=== PATIENT | female | born 1955 | race Caucasian/White ===

== ENCOUNTER 2018-12-03 18:46 | Emergency (ER) | payer BC ==
--- NOTE | 2018-12-03 18:55 | ER Document Report ---
HPI - HPI Time Seen by Provider: 12/03/18 18:55 Pain Level: 2 - REPRODUCTIVE Reproductive: DENIES: : Past Medical History - General Information source: Patient - Social History Smoking Status: Unknown if Ever Smoked Family History: Reviewed & Not Pertinent - Past Medical History Cardiac Medical History: Reports: Hx Hypercholesterolemia, Hx Hypertension Denies: Hx Coronary Artery Disease, Hx Heart Attack Pulmonary Medical History: Denies: Hx Asthma, Hx Bronchitis, Hx COPD, Hx Pneumonia Neurological Medical History: Denies: Hx Cerebrovascular Accident, Hx Seizures Musculoskeletal Medical History: Reports Hx Arthritis Past Surgical History: Reports: Hx Gynecologic Surgery, Hx Hysterectomy. Denies: Hx Pacemaker - Immunizations Hx Diphtheria, Pertussis, Tetanus Vaccination: Yes Vertical Provider Document - CONSTITUTIONAL Agree With Documented VS: Yes Exam Limitations: No Limitations General Appearance: WD/WN Notes: PHYSICAL EXAMINATION: GENERAL: Well-appearing, well-nourished and in no acute distress. HEAD: Atraumatic, normocephalic. EYES: Pupils equal round and reactive to light, extraocular movements intact, conjunctiva are normal. ENT: Nares patent, oropharynx clear without exudates. Moist mucous membranes. NECK: Normal range of motion, supple without lymphadenopathy LUNGS: Breath sounds clear to auscultation bilaterally and equal. No wheezes rales or rhonchi. HEART: Regular rate and rhythm without murmurs ABDOMEN: Soft, nontender, nondistended abdomen. No guarding, no rebound. No masses appreciated. Female : deferred Musculoskeletal: Normal range of motion, no pitting or edema. No cyanosis. Noted pain with flexion, extension, abduction, adduction of 2st digit, tenderness and puncture wound over #second metatarsal and third metatarsal full motor and sensory function in PATIENCE. [employer] + 2 BUE equally. negative Snuffbox tenderness on left . Ulnar and radial pulses + 2 BUE equally. DTRs +2 in bilateral upper extremities equally. No deformity noted of hand or wrist bilaterally. Normal flexion, extension, ulnar/radial deviation. Negative kanavels sign. No open wounds or drainage from wrist. No vascular compromise. full motor and sensory function with medial, radial and ulnar nerves bilaterally and equally. NEUROLOGICAL: Cranial nerves grossly intact. Normal speech, normal gait. Normal sensory, motor exams PSYCH: Normal mood, normal affect. SKIN: Warm, Dry, normal turgor, no rashes or lesions noted. - INFECTION CONTROL TRAVEL OUTSIDE OF THE [place] IN LAST 30 DAYS: No Course - Re-evaluation Re-evalutation: 12/03/18 19:49 Vitals stable, afebrile, no distress. Nurse's notes reviewed. Left hand x-ray negative for acute fracture dislocation, no was noted soft tissue swelling. Patient given tetanus vaccination, unsure of last tetanus in the left over the last 10 years. Will start patient on oral antibiotics, puncture wounds high- pressure irrigation with 100 mL of normal saline, no laceration to repair. Will place patient on oral antibiotics. Consent by patient given to place in left finger aluminum splint,. cms intact, sensory motor function intact in bilateral upper extremities prior to splint application fiberglass splint placed without incident. cms intact 20 minutes after splint application. Splint is in good a lignment. Bilateral upper extremities with motor and sensory function intact 20 minutes after application. Pt stated that splint felt comfortable. After performing a Medical Screening Examination, I estimate there is LOW risk for OPEN FRACTURE, COMPARTMENT SYNDROME, TENDON RUPTURE, ACUTE NEUROVASCULAR INJURY, or RETAINED FOREIGN BODY, thus I consider the discharge disposition reasonable. Also, there is no evidence or peritonitis, sepsis, or toxicity. I have reevaluated this patient multiple times and no significant life threatening changes are noted. The patient and I have discussed the diagnosis and risks, and we agree with discharging home with close follow-up with the understanding that symptoms and presentations can change. We also discussed returning to the Emergency Department immediately if new or worsening symptoms occur. We have discussed the symptoms which are most concerning (e.g., changing or worsening pain, fever, numbness, weakness, cool or painful digits) that necessitate immediate return. 12/03/18 19:59 Discharge - Discharge Clinical Impression: Dog bite Qualifiers: Encounter type: initial encounter Qualified Code(s): W54.0XXA - Bitten by dog, initial encounter Condition: Stable Disposition: HOME, SELF-CARE Instructions: Animal Bites ([facility]), Clindamycin ([facility]), Tetanus Immunization Given ([facility]), Puncture Wound ([facility]) Additional Instructions: Fluctuance receive a day with soap and water, take antibiotics with food, finish course of antibiotics. You are given a tetanus immunization today. Her dog's rabies vaccinations are up-to-date. If you experience any severe pain, redness, swelling, warmth to touch around puncture wound of hand, return to the ED for reevaluation Return immediately for any new or worsening symptoms. Follow up with primary care provider, call tomorrow to make followup appointment. Prescriptions: Ciprofloxacin HCl [Cipro 500 mg Tablet] 500 mg PO BID #10 tablet Clindamycin HCl [Cleocin 150 mg Capsule] 150 mg PO Q6H #28 capsule Referrals: DICK VALERIO PA-C [Primary Care Provider] - Follow up as needed BHARATH ORDAZ MD [ACTIVE PROVISIONAL STAFF] - Follow up as needed
--- NOTE | 2018-12-03 19:17 | RADIOLOGY REPORT (SQ) ---
EXAM DESCRIPTION: HAND LEFT 3 VIEWS COMPLETED DATE/TIME: 12/03/2018 7:08 pm REASON FOR STUDY: dog bite, r/o fx or fb COMPARISON: None. EXAM PARAMETERS: NUMBER OF VIEWS: Three views. TECHNIQUE: AP, lateral and oblique radiographic images acquired of the left hand. LIMITATIONS: None. FINDINGS: MINERALIZATION: Normal. BONES: No acute fracture or dislocation. No worrisome bone lesions. JOINTS: No effusions. SOFT TISSUES: Soft tissue swelling. No foreign body. OTHER: No other significant finding. IMPRESSION: Soft tissue swelling. No osseous findings. No foreign body. TECHNICAL DOCUMENTATION: JOB ID: [id number] [employer]- All Rights Reserved Reading location - IP/workstation name: [email or web address]
[2018-12-03] MEDS ORDERED: DIPH/PERTUSS(ACELL)/TETANUS VAC/PF 0.5 ML SYR (>=10YO) IM ONE (19:42)
[2018-12-03] MEDS ORDERED: IBUPROFEN 800 MG TABLET PO ONE (19:57)
[2018-12-03 20:13] VITALS: BP 148/87
== END 2018-12-03 20:19 | disposition home or self-care (01) ==
LOC: ER 18:46
DX: S61.231A Puncture wound without foreign body of left index finger without damage to nail, initial encounter (principal); W54.0XXA Bitten by dog, initial encounter; Z23 Encounter for immunization; E78.00 Pure hypercholesterolemia, unspecified; I10 Essential (primary) hypertension; Z90.710 Acquired absence of both cervix and uterus
CPT/HCPCS: 90471; 90715; 99283

== ENCOUNTER 2018-12-05 09:23 | Inpatient (IN) | payer BC ==
[2018-12-05] MEDS ORDERED: NORMAL SALINE 500 ML IV PRN (09:51)
[2018-12-05] MEDS ORDERED: HYDROCODONE/ACETAMINOPHEN 5-325 MG TABLET PO ONE (09:51)
[2018-12-05] MEDS ORDERED: CLINDAMYCIN 600 MG/D5W RTU 600 MG/50 ML RTUPB IV ONE (09:53)
--- NOTE | 2018-12-05 09:58 | ER Document Report ---
ED General - General Chief Complaint: Dog Bite Stated Complaint: LEFT HAND PAIN Time Seen by Provider: 12/05/18 09:34 Notes: Patient is a 62-year-old female who presents the emergency department with left hand pain. Patient is right-handed. She was seen here in the emergency department 2 days ago for a dog bite and was started on clindamycin due to her penicillin allergy. She states that she now has some red streaking up her left arm. The puncture wound at her distal first metacarpal has been draining. She has been taking her medication as prescribed. Past medical history includes hyperlipidemia, CHF, hypertension, and anxiety. Patient states that she had some chills last night. She received her tetanus vaccine 2 days ago when she was here in the emergency department. She is able to move her digits, but has some redness and swelling to her left hand. Patient received her tetanus vaccine this past . TRAVEL OUTSIDE OF THE [place] IN LAST 30 DAYS: No - Related Data Allergies/Adverse Reactions: codeine [Codeine] Allergy (Verified 12/05/18 09:25) Penicillins Allergy (Verified 12/05/18 09:25) Past Medical History - Social History Smoking Status: Never Smoker Chew tobacco use (# tins/day): No Frequency of alcohol use: Rare Drug Abuse: None Family History: Reviewed & Not Pertinent Patient has suicidal ideation: No Patient has homicidal ideation: No - Past Medical History Cardiac Medical History: Reports: Hx Congestive Heart Failure, Hx Hypercholesterolemia, Hx Hypertension Denies: Hx Coronary Artery Disease, Hx Heart Attack Pulmonary Medical History: Denies: Hx Asthma, Hx Bronchitis, Hx COPD, Hx Pneumonia Neurological Medical History: Denies: Hx Cerebrovascular Accident, Hx Seizures Renal/ Medical History: Denies: Hx Peritoneal Dialysis Musculoskeletal Medical History: Reports Hx Arthritis Past Surgical History: Reports: Hx Gynecologic Surgery, Hx Hysterectomy. Denies: Hx Pacemaker - Immunizations Hx Diphtheria, Pertussis, Tetanus Vaccination: Yes Review of Systems - Review of Systems Notes: REVIEW OF SYSTEMS: CONSTITUTIONAL : See HPI. EENT: Denies eye, ear, throat, or mouth pain, discharge, or symptoms. Denies nasal or sinus congestion. CARDIOVASCULAR: Denies chest pain. RESPIRATORY: Denies shortness of breath, cough, congestion, difficulty breathing, or wheezing. GASTROINTESTINAL: Denies nausea, vomiting, and diarrhea. Denies abdominal pain. Denies constipation. GENITOURINARY: Denies difficulty urinating, burning, blood in urine, urgency or frequency. MUSCULOSKELETAL: Denies neck and back pain. See HPI. SKIN: See HPI. HEMATOLOGIC : Denies easy bruising or bleeding. LYMPHATIC: Denies swollen, painful, enlarged glands. NEUROLOGICAL: Denies no numbness or tingling denies weakness. Denies headache. Denies altered mental status. Denies alteration in speech. PSYCHIATRIC: Denies stress, anxiety, alteration in sleep patterns, or depression. All other systems reviewed and negative. Physical Exam - Vital signs Vitals: Temp Pulse Resp BP Pulse Ox 98.1 F 79 16 135/74 H 97 12/05/18 09:28 12/05/18 09:28 12/05/18 09:28 12/05/18 09:28 12/05/18 09:28 - Notes Notes: PHYSICAL EXAMINATION: GENERAL: Appears well, healthy, well-nourished, no acute distress. HEAD: Normocephalic, atraumatic. EYES: PERRL, conjunctiva normal, all extraocular movements intact, sclera nonicteric ENT: Moist mucous membranes. NECK: Supple, no noticeable swelling, redness, rash. Normal range of motion. LUNGS: Equal breath sounds bilaterally and clear to auscultation. No wheezes rales or rhonchi. CARDIOVASCULAR: S1-S2, regular rate, regular rhythm. Radial pulses 2+, normal. ABDOMEN: Normoactive bowel sounds. Soft, nontender, no guarding, no rebound tenderness, and no masses palpated. EXTREMITIES: 2+ pitting edema to left hand. No cyanosis. NEUROLOGICAL: Moves all extremities upon command. Strength 5/5 in all extremities. PSYCH: Normal mood, normal affect. SKIN: Warm, dry. Hot, erythematous left hand to left wrist. Course - Re-evaluation Re-evalutation: 12/05/18 09:58 Patient will be sent for a CT of the left upper extremity to rule out any abscess, because she does have some drainage from the puncture wounds. She also receive a dose of IV clindamycin. Blood cultures will be sent. Basic labs will be sent. 12/05/18 11:33 Patient has a leukocytosis of 12,900. Her chemistries are unremarkable. Awaiting CT results of the upper extremity. 12/05/18 12:50 CT does not show any abscess at this time. No fracture. I spoke with Dr. Cannon, the hospitalist doctor. She will be admitted to the telemetry unit. This was relayed on to the patient. Patient is in agreement with admission. - Vital Signs Vital signs: Temp Pulse Resp BP Pulse Ox 97.6 F 81 15 120/63 95 12/05/18 20:38 12/05/18 20:38 12/05/18 20:38 12/05/18 20:38 12/05/18 20:38 - Laboratory Result Diagrams: 12/05/18 10:10 12/05/18 10:10 Laboratory results interpreted by me: 12/05/18 12/05/18 10:10 10:10 WBC 12.9 H Lymph % (Auto) 10.8 L Absolute Neuts (auto) 10.5 H Seg Neutrophils % 81.2 H Glucose 120 H Direct Bilirubin 0.5 H Discharge - Discharge Clinical Impression: Cellulitis of left hand, Cellulitis of left arm Dog bite Qualifiers: Encounter type: subsequent encounter Qualified Code(s): W54.0XXD - Bitten by dog, subsequent encounter Condition: Stable Disposition: ADMITTED INPATIENT Admitting Provider: Kassandra (Hospitalist) Unit Admitted: Telemetry
[2018-12-05 10:26] LABS: ABSOLUTE EOSINOPHILS # (AUTO) 0.2 10^3/uL (0.0-0.6); ABSOLUTE LYMPHOCYTES (AUTO) 1.4 10^3/uL (0.5-4.7); ABSOLUTE MONOCYTES (AUTO) 0.8 10^3/uL (0.1-1.4); ABSOLUTE NEUT (AUTO) 10.5 10^3/uL (1.7-8.2); BASOPHILS % (AUTO) 0.3 % (0-2); EOSINOPHILS % (AUTO) 1.7 % (0-6); HEMOGLOBIN 14.4 g/dL (12.0-15.5); LYMPHOCYTES % (AUTO) 10.8 % (13-45); MEAN CORPUSCULAR HGB CONC 33.5 g/dL (32.0-36.0); MEAN CORPUSCULAR VOLUME 90 fl (80-97); PLATELET COUNT 261 10^3/uL (150-450); RED BLOOD COUNT 4.79 10^6/uL (3.72-5.28); SEGMENTED NEUTROPHILS % (AUTO) 81.2 % (42-78); TOTAL CELLS COUNTED % (AUTO) 100 %; WHITE BLOOD COUNT 12.9 10^3/uL (4.0-10.5)
[2018-12-05 10:45] LABS: ALBUMIN 4.1 g/dL (3.5-5.0); ALKALINE PHOSPHATASE 64 U/L (38-126); ANION GAP 8 (5-19); ASPARTATE AMINO TRANSFERASE 21 U/L (14-36); BILIRUBIN,DIRECT 0.5 mg/dL (0.0-0.4); BILIRUBIN,TOTAL 1.1 mg/dL (0.2-1.3); BLOOD UREA NITROGEN 20 mg/dL (7-20); CALCIUM 9.7 mg/dL (8.4-10.2); CARBON DIOXIDE 26 mmol/L (22-30); CHLORIDE 105 mmol/L (98-107); GLUCOSE 120 mg/dL (75-110); TOTAL PROTEIN 7.1 g/dL (6.3-8.2)
--- NOTE | 2018-12-05 11:50 | RADIOLOGY REPORT (SQ) ---
EXAM DESCRIPTION: CT LT UPPER EXTREMITY WITH COMPLETED DATE/TIME: 12/05/2018 11:36 am REASON FOR STUDY: eval abcess/dog bite COMPARISON: Radiographs 12/03/2018. TECHNIQUE: Post IV contrasted axial scanning through the hand and wrist. Bone and soft tissue chelleo ramona reviewed. Coronal and sagittal reconstructions. LIMITATIONS: None. FINDINGS: Bones: No fracture, subluxation or dislocation identified. No aggressive bone erosions o r areas of destruction. Normal carpal alignment. Soft tissues: Mild subcutaneous soft tissue edema along the dorsal aspect of the hand. No drainable collections to suggest abscess. No evidence of radiopaque foreign body. IMPRESSION: 1. No abscess detected. TECHNICAL DOCUMENTATION: JOB ID: [id number] [employer]- All Rights Reserved Reading location - IP/workstation name: [email or web address]
[2018-12-05] MEDS ORDERED: KETOROLAC TROMETHAMINE INJ/PF 30 MG/1 ML SDV IV ONE (12:23)
[2018-12-05] MEDS ORDERED: VANCOMYCIN HCL INJ 1000 MG VIAL IV ONE (13:11)
[2018-12-05] MEDS ORDERED: MORPHINE SULFATE 10 MG/ML INJ IV ONE (14:36)
[2018-12-05] MEDS ORDERED: VANCOMYCIN HCL 0 MG in DEXTROSE 5%-WATER 250 ML IV NR (15:00)
[2018-12-05] MEDS: LEVOFLOXACIN 750 MG/D5W RTU 750 MG/150 ML RTUPB IV SCH (15:41)
[2018-12-05] MEDS ORDERED: ONDANSETRON HCL INJ/PF 4 MG/2 ML SDV ONE (15:43)
--- NOTE | 2018-12-05 16:09 | PDOC H&P ---
History of Present Illness Admission Date/PCP: 12/05/18 13:20 DICK VALERIO PA-C Patient complains of: Left arm pain History of Present Illness: FUENTES MAGALLANES is a 62 year old female with a past medical history of CHF, hypertension, hyperlipidemia, and depression who presented with increasing left arm pain and swelling. Patient says that she was bitten by her dog on her left hand last . She went to the ER and was prescribed p.o. clindamycin. She says that she did not get any relief and the swelling and pain worsened and she now has tenderness and erythema which extended to the left arm with pain radiating to the left armpit. She denies fever at home but did report of some chills. She has penicillin allergy and says that she had shortness of breath and that her throat almost closed off from her penicillin. Past Medical History Cardiac Medical History: Reports: Congestive Heart Failure, Hyperlipidema, Hypertension Denies: Coronary Artery Disease, Myocardial Infarction Pulmonary Medical History: Denies: Asthma, Bronchitis, Chronic Obstructive Pulmonary Disease (COPD), Pneumonia Neurological Medical History: Denies: Seizures Musculoskeltal Medical History: Reports: Arthritis Hematology: Denies: Anemia Past Surgical History Past Surgical History: Reports: Hysterectomy Denies: Pacemaker Social History Smoking Status: Never Smoker Family History Family History: Reviewed & Not Pertinent Parental Family History Reviewed: Yes - No premature CAD Children Family History Reviewed: No Sibling(s) Family History Reviewed.: No Medication/Allergy Allergies/Adverse Reactions: codeine [Codeine] Allergy (Verified 12/05/18 09:25) Penicillins Allergy (Verified 12/05/18 09:25) Review of Systems All systems: reviewed and no additional remarkable complaints except as stated - As mentioned in HPI Physical Exam Vital Signs: Temp Pulse Resp BP Pulse Ox 98.1 F 79 16 135/74 H 97 12/05/18 09:28 12/05/18 09:28 12/05/18 09:28 12/05/18 09:28 12/05/18 09:28 Intake & Output 12/04/18 12/05/18 12/06/18 06:59 06:59 06:59 Intake Total 550 Balance 550 Weight 202 lb 2.622 oz General appearance: PRESENT: no acute distress, well-developed, well-nourished Head exam: PRESENT: atraumatic, normocephalic Eye exam: PRESENT: conjunctiva pink, EOMI, PERRLA. ABSENT: scleral icterus Ear exam: PRESENT: normal external ear exam Mouth exam: PRESENT: moist, tongue midline Neck exam: ABSENT: carotid bruit, JVD, lymphadenopathy, thyromegaly Respiratory exam: PRESENT: clear to auscultation josy. ABSENT: rales, rhonchi, wheezes Cardiovascular exam: PRESENT: RRR. ABSENT: diastolic murmur, rubs, systolic murmur Pulses: PRESENT: normal dorsalis pedis pul GI/Abdominal exam: PRESENT: normal bowel sounds, soft. ABSENT: distended, guarding, mass, organolmegaly, rebound, tenderness Rectal exam: PRESENT: deferred Musculoskeletal exam: PRESENT: other - Erythema over the left hand, with history of erythema and tenderness on the left forearm and left arm, lesions demarcated Neurological exam: PRESENT: alert, awake, oriented to person, oriented to place, oriented to time, oriented to situation, CN II-XII grossly intact. ABSENT: motor sensory deficit Results Laboratory Results: 12/05/18 10:10 12/05/18 10:10 12/05/18 12/05/18 10:10 10:10 WBC 12.9 H RBC 4.79 Hgb 14.4 Hct 43.0 MCV 90 MCH 30.0 MCHC 33.5 RDW 14.0 Plt Count 261 Seg Neutrophils % 81.2 H Sodium 139.0 Potassium 4.0 Chloride 105 Carbon Dioxide 26 Anion Gap 8 BUN 20 Creatinine 0.77 Est GFR ( Amer) > 60 Glucose 120 H Calcium 9.7 Total Bilirubin 1.1 AST 21 Alkaline Phosphatase 64 Total Protein 7.1 Albumin 4.1 Impressions: Upper Extremity CT 12/05/18 09:49 IMPRESSION: 1. No abscess detected. Assessment and Plan - Diagnosis (1) Cellulitis of left hand Is this a current diagnosis for this admission?: Yes Plan: Failed outpatient oral therapy. She has anaphylaxis to penicillins. Started on IV clindamycin. Also given IV vancomycin in the ER. Will add IV levofloxacin. (2) Cellulitis of left arm Is this a current diagnosis for this admission?: Yes Plan: As per #1. (3) Hypertension Is this a current diagnosis for this admission?: Yes Plan: Resume home meds once verified. (4) History of CHF (congestive heart failure) Is this a current diagnosis for this admission?: Yes Plan: Not in exacerbation. Resume home meds once verified. (5) Depression Is this a current diagnosis for this admission?: Yes Plan: Resume antidepressants once verified. (6) Dog bite Qualifiers: Encounter type: subsequent encounter Qualified Code(s): W54.0XXD - Bitten by dog, subsequent encounter Is this a current diagnosis for this admission?: Yes Plan: As per #1. - Time Time Spent with patient: 25-34 minutes
--- NOTE | 2018-12-05 16:11 | ADVANCED CARE ---
- Diagnosis (1) Cellulitis of left arm Diagnosis Current: Yes (2) Cellulitis of left hand Diagnosis Current: Yes (3) Depression Diagnosis Current: Yes (4) Dog bite Diagnosis Current: Yes (5) History of CHF (congestive heart failure) Diagnosis Current: Yes (6) Hypertension Diagnosis Current: Yes Resuscitation Status: Do Not Resuscitate Discussion: Discussed with patient in length. She says that she is a DNR/DNI. She verbalized that she does not want to receive chest compressions, defibrillation or mechanical ventilation if the need arises. She verbalizes she does not want any artificial tubes or life support devices on her. She says that her sister, Amisha Elam and her stepson Silviano Byrd are her surrogate medical decision makers.
[2018-12-05] MEDS ORDERED: LORAZEPAM INJ 2 MG/1 ML VIAL ONE ×2 (16:15→17:00)
[2018-12-05] MEDS ORDERED: LORAZEPAM INJ 2 MG/1 ML VIAL IV ONE ×2 (16:30→17:15)
[2018-12-05] MEDS: CLINDAMYCIN 600 MG/D5W RTU 600 MG/50 ML RTUPB IV SCH (17:53)
[2018-12-05] MEDS: KETOROLAC TROMETHAMINE INJ/PF 30 MG/1 ML SDV IV PRN (19:39)
--- NOTE | 2018-12-05 21:01 | EKG REPORT ---
SEVERITY:- ABNORMAL ECG - SINUS RHYTHM INCOMPLETE RIGHT BUNDLE BRANCH BLOCK : Confirmed by: Estevan Christensen MD 05-Dec-2018 21:00:09
[2018-12-05] MEDS ORDERED: (PENDING PHARMACY ID) (Enalapril Maleate [Vasotec 20 Mg Tablet] 20 MG) PO SCH (22:00)
[2018-12-05] MEDS ORDERED: (PENDING PHARMACY ID) (Esomeprazole Mag Trihydrate [Nexium] 40 MG) PO SCH (22:00)
[2018-12-05] MEDS: MORPHINE SULFATE 10 MG/ML INJ IV PRN (22:27)
[2018-12-05] MEDS: VENLAFAXINE HCL 75 MG CAP.SR.24H PO SCH (22:29)
[2018-12-05] MEDS: VERAPAMIL HCL 240 MG TABLET.SA PO SCH (22:29)
[2018-12-05] MEDS: ENALAPRIL MALEATE 10 MG TABLET PO SCH (22:30)
[2018-12-05] MEDS: HEPARIN SOD (PORCINE) 5,000 UNIT/ML 1 ML VIAL SUBCUT SCH (22:30)
[2018-12-05] MEDS: PANTOPRAZOLE SODIUM 40 MG TABLET.DR PO SCH (22:31)
[2018-12-05] MEDS: FUROSEMIDE 20 MG TABLET PO SCH (22:31)
[2018-12-05] MEDS: ATORVASTATIN CALCIUM 20 MG TABLET PO SCH (22:32)
[2018-12-06] MEDS: KETOROLAC TROMETHAMINE INJ/PF 30 MG/1 ML SDV IV PRN ×2 (01:51→22:09)
[2018-12-06] MEDS: CLINDAMYCIN 600 MG/D5W RTU 600 MG/50 ML RTUPB IV SCH ×3 (01:54→17:41)
[2018-12-06] MEDS: MORPHINE SULFATE 10 MG/ML INJ IV PRN ×2 (06:19→15:30)
[2018-12-06] MEDS: HEPARIN SOD (PORCINE) 5,000 UNIT/ML 1 ML VIAL SUBCUT SCH ×2 (10:11→22:04)
[2018-12-06] MEDS: ONDANSETRON HCL INJ/PF 4 MG/2 ML SDV IV PRN ×2 (10:25→19:12)
[2018-12-06] MEDS: LEVOFLOXACIN 750 MG/D5W RTU 750 MG/150 ML RTUPB IV SCH (13:05)
--- NOTE | 2018-12-06 13:17 | PDOC PROGRESS REPORT ---
Subjective Progress Note for:: 12/06/18 Subjective:: FUENTES MAGALLANES is a 62 year old female with a past medical history of CHF, hypertension, hyperlipidemia, and depression who presented with increasing left arm pain and swelling. She was admitted for left upper extremity cellulitis. No acute event overnight. She continues to have erythema and tenderness on the left hand and left arm albeit this is noticeably improved compared to yesterday. He says that the pain has also slightly improved today. No fever or chills. Reason For Visit: CELLULITIS,LEFT ARM Physical Exam Vital Signs: Temp Pulse Resp BP Pulse Ox 97.5 F 73 18 128/74 H 96 12/06/18 11:00 12/06/18 11:00 12/06/18 11:00 12/06/18 11:00 12/06/18 11:00 Intake & Output 12/05/18 12/06/18 12/07/18 06:59 06:59 06:59 Intake Total 1620 Balance 1620 Weight 208 lb 12.444 oz General appearance: PRESENT: no acute distress, well-developed, well-nourished Head exam: PRESENT: atraumatic, normocephalic Eye exam: PRESENT: conjunctiva pink, EOMI, PERRLA. ABSENT: scleral icterus Ear exam: PRESENT: normal external ear exam Mouth exam: PRESENT: moist, tongue midline Neck exam: ABSENT: carotid bruit, JVD, lymphadenopathy, thyromegaly Respiratory exam: PRESENT: clear to auscultation josy. ABSENT: rales, rhonchi, wheezes Cardiovascular exam: PRESENT: RRR. ABSENT: diastolic murmur, rubs, systolic murmur Pulses: PRESENT: normal dorsalis pedis pul GI/Abdominal exam: PRESENT: normal bowel sounds, soft. ABSENT: distended, guarding, mass, organolmegaly, rebound, tenderness Rectal exam: PRESENT: deferred Musculoskeletal exam: PRESENT: other - Slightly improved erythema and tenderness in the left hand and left arm Neurological exam: PRESENT: alert, awake, oriented to person, oriented to place, oriented to time, oriented to situation, CN II-XII grossly intact. ABSENT: motor sensory deficit Results Laboratory Results: 12/05/18 10:10 12/05/18 10:10 Impressions: Upper Extremity CT 12/05/18 09:49 IMPRESSION: 1. No abscess detected. Assessment and Plan - Diagnosis (1) Cellulitis of left hand Is this a current diagnosis for this admission?: Yes Plan: Slightly improving. Related to dog bite. She has anaphylaxis to penicillins. continue IV clindamycin and levofloxacin. (2) Cellulitis of left arm Is this a current diagnosis for this admission?: Yes Plan: As per #1. (3) Depression Is this a current diagnosis for this admission?: Yes Plan: Resumed antidepressants. (4) Dog bite Qualifiers: Encounter type: subsequent encounter Qualified Code(s): W54.0XXD - Bitten by dog, subsequent encounter Is this a current diagnosis for this admission?: Yes Plan: As per #1. (5) History of CHF (congestive heart failure) Is this a current diagnosis for this admission?: Yes Plan: Not in exacerbation. Resumed home meds. (6) Hypertension Is this a current diagnosis for this admission?: Yes Plan: Resumed home meds.
--- NOTE | 2018-12-06 13:27 | XCELERA REPORT ---
[address] [address] Upper Extremity Venous Evaluation Name: FUENTES MAGALLANES Age: 62 yrs Gender: Female : 1955 Patient Status: Inpatient Patient Location: [address] [place], [place] [address]A Study Date: 12/05/2018 06:46 PM Procedure: Unilateral duplex scan of the left upper extremity veins was performed, including responses to compression and other maneuvers. Reason For Study: left arm pain Ordering Physician: DOUGLAS GOLDEN Performed By: Wilbert Parks Left Sided Venous Evaluation Normal vessel filling wall to wall, compression and augmentation as well as Colour flow down to the forearm veins. Interpretation Summary No duplex evidence of DVT or obstruction in the left upper extremity. : DOUGLAS GOLDEN > Stef Morley
[2018-12-06] MEDS: ENALAPRIL MALEATE 10 MG TABLET PO SCH (22:04)
[2018-12-06] MEDS: PANTOPRAZOLE SODIUM 40 MG TABLET.DR PO SCH (22:07)
[2018-12-06] MEDS: VENLAFAXINE HCL 75 MG CAP.SR.24H PO SCH (22:07)
[2018-12-06] MEDS: VERAPAMIL HCL 240 MG TABLET.SA PO SCH (22:08)
[2018-12-06] MEDS: ATORVASTATIN CALCIUM 20 MG TABLET PO SCH (22:08)
[2018-12-06] MEDS: FUROSEMIDE 20 MG TABLET PO SCH (22:08)
[2018-12-07] MEDS: MORPHINE SULFATE 10 MG/ML INJ IV PRN ×2 (02:06→10:07)
[2018-12-07] MEDS: CLINDAMYCIN 600 MG/D5W RTU 600 MG/50 ML RTUPB IV SCH ×3 (02:07→17:16)
[2018-12-07] MEDS: IPRATROPIUM/ALBUTEROL 0.5-2.5 MG/3 ML AMPUL NEB SCH ×2 (08:27→11:58)
--- NOTE | 2018-12-07 08:55 | RADIOLOGY REPORT (SQ) ---
EXAM DESCRIPTION: CHEST SINGLE VIEW COMPLETED DATE/TIME: 12/07/2018 8:44 am REASON FOR STUDY: SOB COMPARISON: 07/22/2007. EXAM PARAMETERS: NUMBER OF VIEWS: One view. TECHNIQUE: Single frontal radiographic view of the chest acquired. RADIATION DOSE: NA LIMITATIONS: None. FINDINGS: LUNGS AND PLEURA: No opacities, masses or pneumothorax. No pleural effusion. MEDIASTINUM AND HILAR STRUCTURES: No masses. Contour normal. HEART AND VASCULAR STRUCTURES: Heart normal in size. Normal vasculature. BONES: No acute findings. HARDWARE: None in the chest. OTHER: No other significant finding. IMPRESSION: NO ACUTE RADIOGRAPHIC FINDING IN THE CHEST. TECHNICAL DOCUMENTATION: JOB ID: [id number] [employer]- All Rights Reserved Reading location - IP/workstation name: [email or web address]
[2018-12-07] MEDS: HEPARIN SOD (PORCINE) 5,000 UNIT/ML 1 ML VIAL SUBCUT SCH ×2 (09:56→22:04)
[2018-12-07 11:40] LABS: ABSOLUTE EOSINOPHILS # (AUTO) 0.1 10^3/uL (0.0-0.6); ABSOLUTE LYMPHOCYTES (AUTO) 0.7 10^3/uL (0.5-4.7); ABSOLUTE MONOCYTES (AUTO) 0.3 10^3/uL (0.1-1.4); ABSOLUTE NEUT (AUTO) 5.2 10^3/uL (1.7-8.2); BASOPHILS % (AUTO) 0.6 % (0-2); EOSINOPHILS % (AUTO) 2.3 % (0-6); HEMATOCRIT 38.5 % (36.0-47.0); HEMOGLOBIN 12.8 g/dL (12.0-15.5); LYMPHOCYTES % (AUTO) 11.6 % (13-45); MEAN CORPUSCULAR HEMOGLOBIN 29.7 pg (27.0-33.4); MEAN CORPUSCULAR HGB CONC 33.2 g/dL (32.0-36.0); MEAN CORPUSCULAR VOLUME 89 fl (80-97); MONOCYTES % (AUTO) 4.5 % (3-13); PLATELET COUNT 254 10^3/uL (150-450); RED BLOOD COUNT 4.31 10^6/uL (3.72-5.28); RED CELL DISTRIBUTION WIDTH 14.2 % (11.5-14.0); TOTAL CELLS COUNTED % (AUTO) 100 %; WHITE BLOOD COUNT 6.4 10^3/uL (4.0-10.5)
[2018-12-07 11:49] LABS: ANION GAP 9 (5-19); BLOOD UREA NITROGEN 18 mg/dL (7-20); CALCIUM 9.2 mg/dL (8.4-10.2); CARBON DIOXIDE 25 mmol/L (22-30); CHLORIDE 104 mmol/L (98-107); GLUCOSE 126 mg/dL (75-110); POTASSIUM 3.7 mmol/L (3.6-5.0)
[2018-12-07] MEDS: LEVOFLOXACIN 750 MG/D5W RTU 750 MG/150 ML RTUPB IV SCH (12:45)
[2018-12-07] MEDS: ONDANSETRON HCL INJ/PF 4 MG/2 ML SDV IV PRN (12:56)
--- NOTE | 2018-12-07 15:50 | ADVANCED CARE ---
- Diagnosis (2) Cellulitis of left hand Diagnosis Current: Yes (3) Cellulitis of left arm Diagnosis Current: Yes (4) Depression Diagnosis Current: Yes (5) Dog bite Diagnosis Current: Yes (6) History of CHF (congestive heart failure) Diagnosis Current: Yes Resuscitation Status: Do Not Resuscitate Discussion: Patient brought up to change her CODE STATUS today. She says that she has rediscussed her advanced directive with her family and relatives. She says that she wants to rescind her DNR/DNI status. She says that she would not prefer to receive chest compressions, defibrillation or mechanical ventilation would not need arises. She says that she just felt that she was so sick when she was admitted and hence felt she needed to be a DNR/DNI but after discussing it with her family, she wants to be a full code.
--- NOTE | 2018-12-07 16:00 | PDOC PROGRESS REPORT ---
Subjective Progress Note for:: 12/07/18 Subjective:: FUENTES MAGALLANES is a 62 year old female with a past medical history of CHF, hypertension, hyperlipidemia, and depression who presented with increasing left arm pain and swelling. She was admitted for left upper extremity cellulitis. 12/06: She continues to have erythema and tenderness on the left hand and left arm albeit this is noticeably improved compared to yesterday. He says that the pain has also slightly improved today. No fever or chills. 12/07: No acute event overnight. There is slight improvement in the erythema and tenderness on the left arm and hand albeit slow but gradual improvement. There is minimal drainage now coming out from the left hand. Will consult orthopedics for further recommendations. Reason For Visit: CELLULITIS,LEFT ARM Physical Exam Vital Signs: Temp Pulse Resp BP Pulse Ox 98.5 F 76 17 120/60 95 12/07/18 15:20 12/07/18 15:20 12/07/18 15:20 12/07/18 15:20 12/07/18 15:20 Intake & Output 12/06/18 12/07/18 12/08/18 06:59 06:59 06:59 Intake Total 1620 2050 920 Balance 1620 2050 920 Weight 208 lb 12.444 oz 218 lb 11.177 oz General appearance: PRESENT: no acute distress, well-developed, well-nourished Head exam: PRESENT: atraumatic, normocephalic Eye exam: PRESENT: conjunctiva pink, EOMI, PERRLA. ABSENT: scleral icterus Ear exam: PRESENT: normal external ear exam Mouth exam: PRESENT: moist, tongue midline Neck exam: ABSENT: carotid bruit, JVD, lymphadenopathy, thyromegaly Respiratory exam: PRESENT: clear to auscultation josy. ABSENT: rales, rhonchi, wheezes Cardiovascular exam: PRESENT: RRR. ABSENT: diastolic murmur, rubs, systolic murmur Pulses: PRESENT: normal dorsalis pedis pul GI/Abdominal exam: PRESENT: normal bowel sounds, soft. ABSENT: distended, guarding, mass, organolmegaly, rebound, tenderness Rectal exam: PRESENT: deferred Extremities exam: PRESENT: other - slight improvement in the erythema and tenderness on the left arm and hand albeit slow improvement Neurological exam: PRESENT: alert, awake, oriented to person, oriented to place, oriented to time, oriented to situation, CN II-XII grossly intact. ABSENT: motor sensory deficit Results Laboratory Results: 12/07/18 11:25 12/07/18 11:25 12/07/18 12/07/18 12/07/18 11:25 11:25 11:25 WBC 6.4 RBC 4.31 Hgb 12.8 Hct 38.5 MCV 89 MCH 29.7 MCHC 33.2 RDW 14.2 H Plt Count 254 Seg Neutrophils % 81.0 H Sodium 137.7 Potassium 3.7 Chloride 104 Carbon Dioxide 25 Anion Gap 9 BUN 18 Creatinine 0.77 Est GFR ( Amer) > 60 Glucose 126 H Lactic Acid 0.9 Calcium 9.2 Impressions: Upper Extremity CT 12/05/18 09:49 IMPRESSION: 1. No abscess detected. Chest X-Ray 12/07/18 00:00 IMPRESSION: NO ACUTE RADIOGRAPHIC FINDING IN THE CHEST. Assessment and Plan - Diagnosis (1) Cellulitis of left hand Is this a current diagnosis for this admission?: Yes Plan: Slightly improving. Related to dog bite. She has anaphylaxis to penicillins. Continue IV clindamycin and levofloxacin. Wound culture also ordered. (2) Cellulitis of left arm Is this a current diagnosis for this admission?: Yes Plan: As per #1. (3) Depression Is this a current diagnosis for this admission?: Yes Plan: Resumed antidepressants. (4) Dog bite Qualifiers: Encounter type: subsequent encounter Qualified Code(s): W54.0XXD - Bitten by dog, subsequent encounter Is this a current diagnosis for this admission?: Yes Plan: As per #1. (5) History of CHF (congestive heart failure) Is this a current diagnosis for this admission?: Yes Plan: Not in exacerbation. Resumed home meds. (6) Hypertension Is this a current diagnosis for this admission?: Yes Plan: Controlled. Continue enalapril and verapamil. - Time Time Spent with patient: 25-34 minutes
[2018-12-07] MEDS: KETOROLAC TROMETHAMINE INJ/PF 30 MG/1 ML SDV IV PRN (20:08)
[2018-12-07] MEDS: ENALAPRIL MALEATE 10 MG TABLET PO SCH (22:05)
[2018-12-07] MEDS: FUROSEMIDE 20 MG TABLET PO SCH (22:05)
[2018-12-07] MEDS: VERAPAMIL HCL 240 MG TABLET.SA PO SCH (22:06)
[2018-12-07] MEDS: ATORVASTATIN CALCIUM 20 MG TABLET PO SCH (22:06)
[2018-12-07] MEDS: PANTOPRAZOLE SODIUM 40 MG TABLET.DR PO SCH (22:06)
[2018-12-07] MEDS: VENLAFAXINE HCL 75 MG CAP.SR.24H PO SCH (22:06)
[2018-12-08] MEDS: CLINDAMYCIN 600 MG/D5W RTU 600 MG/50 ML RTUPB IV SCH ×3 (01:24→17:21)
[2018-12-08] MEDS: MORPHINE SULFATE 10 MG/ML INJ IV PRN ×4 (01:33→21:28)
--- NOTE | 2018-12-08 07:53 | PDOC CONSULTATION ---
Consultation Consult Date: 12/08/18 Provider Consulted: TRAY IBRAHIM JR History of Present Illness Admission Date/PCP: 12/07/18 11:57 DICK VALERIO PA-C History of Present Illness: FUENTES MAGALLANES is a 62 year old female Patient sustained a dog bite from her elderly blind dog after she startled him. This occurred 2 days ago and since that time her hand is continued to swell with proximal lymphangitis up into her axilla. She initially presented to a provider who gave her p.o. medications for home however those antibiotics did not lead to any improvement. She presented last night to the emergency department and received Unasyn IV. Since that time she has been on the floor receiving continuous IV Levaquin. She does not report progressive pain or symptoms since admission she denies fevers chills. She is able to range her hand and did not denies second MCP pain with mid range of motion outside of extremes. Past Medical History Cardiac Medical History: Reports: Congestive Heart Failure, Hyperlipidema, Hypertension Denies: Coronary Artery Disease, Myocardial Infarction Pulmonary Medical History: Denies: Asthma, Bronchitis, Chronic Obstructive Pulmonary Disease (COPD), Pneumonia Neurological Medical History: Denies: Seizures Musculoskeltal Medical History: Reports: Arthritis Psychiatric Medical History: Denies: Depression Hematology: Denies: Anemia Past Surgical History Past Surgical History: Reports: Hysterectomy Denies: Pacemaker Social History Smoking Status: Never Smoker Frequency of Alcohol Use: None Hx Recreational Drug Use: No Drugs: None Hx Prescription Drug Abuse: No - Advance Directive Resuscitation Status: Do Not Resuscitate Family History Family History: Reviewed & Not Pertinent Parental Family History Reviewed: No Children Family History Reviewed: No Sibling(s) Family History Reviewed.: No Medication/Allergy Home Medications: Atorvastatin Calcium [Lipitor 20 mg Tablet] 20 mg PO QHS 12/05/18 Enalapril Maleate [Vasotec 20 mg Tablet] 20 mg PO QHS 12/05/18 Esomeprazole Mag Trihydrate [Nexium] 40 mg PO QHS 12/05/18 Furosemide [Lasix 20 mg Tablet] 20 mg PO QHS 12/05/18 Venlafaxine HCl [Venlafaxine HCl ER] 150 mg PO QHS 12/05/18 Verapamil HCl [Verapamil ER] 240 mg PO QHS 12/05/18 Allergies/Adverse Reactions: codeine [Codeine] Allergy (Verified 12/05/18 09:25) Penicillins Allergy (Verified 12/05/18 09:25) Review of Systems Review of Systems: Constitutional: ABSENT: anorexia, chills, night sweats Cardiovascular: ABSENT: chest pain Respiratory: ABSENT: dyspnea Gastrointestinal: ABSENT: vomiting Genitourinary: ABSENT: dysuria Integumentary: ABSENT: rash Neurological: ABSENT: confusion, memory loss, numbness Psychiatric: ABSENT: hallucinations Hematologic/Lymphatic: ABSENT: easy bleeding All negative as above aside from that reported in the HPI and the following:Lymphadenopathy in the axilla on the right, rash consistent with lymphangitis tracking up the forearm into the axilla hand swelling and wound drainage. Physical Exam Vital Signs: Temp Pulse Resp BP Pulse Ox 98.5 F 73 18 152/80 H 98 12/07/18 23:30 12/08/18 02:00 12/07/18 23:30 12/07/18 23:30 12/07/18 23:30 Intake & Output 12/07/18 12/08/18 12/09/18 06:59 06:59 06:59 Intake Total 2049 1240 Balance 2049 1240 Weight 99.2 kg 103.1 kg Physical Exam: General appearance: PRESENT: no acute distress, cooperative, well-nourished Head exam: PRESENT: atraumatic, normocephalic Eye exam: PRESENT: EOMI Ear exam: PRESENT: normal external ear exam Mouth exam: PRESENT: neck supple Neck exam: ABSENT: tracheal deviation Respiratory exam: PRESENT: symmetrical, unlabored. ABSENT: accessory muscle use, wheezes Pulses: PRESENT: normal radial pulses, normal dorsalis pedis pul Vascular exam: PRESENT: normal capillary refill GI/Abdominal exam: ABSENT: distended, firm Extremities exam: PRESENT: full ROM Musculoskeletal exam: PRESENT: full ROM, normal inspection Neurological exam: PRESENT: alert, awake, oriented to person, oriented to place, oriented to time Psychiatric exam: PRESENT: appropriate affect. ABSENT: agitated Focused psych exam: ABSENT: catatonic Skin exam: PRESENT: intact. ABSENT: dry All as above aside from that noted in the HPI and the following: The puncture wounds on the left dorsum of the hand one proximal to one at and one distal to the second MCP joint. On the visit today these were unroofed and slight purulent purulent material was evacuated. They do not appear to be actively draining there is no palpable fluctuance or appreciable abscess. The patient is able to range her finger without significant pain outside of extremes. Otherwise she has full sensation and motor function to her left upper extremity. She does have lymphangitis tracking up to the axilla with axillary lymphadenopathy and tenderness to palpation. This has been marked out with a skin marker and does not appear to have expanded since the time of her admission Results Laboratory Results: 12/07/18 11:25 12/07/18 11:25 12/07/18 12/07/18 12/07/18 11:25 11:25 11:25 WBC 6.4 RBC 4.31 Hgb 12.8 Hct 38.5 MCV 89 MCH 29.7 MCHC 33.2 RDW 14.2 H Plt Count 254 Seg Neutrophils % 81.0 H Sodium 137.7 Potassium 3.7 Chloride 104 Carbon Dioxide 25 Anion Gap 9 BUN 18 Creatinine 0.77 Est GFR ( Amer) > 60 Glucose 126 H Lactic Acid 0.9 Calcium 9.2 Impressions: Upper Extremity CT 12/05/18 09:49 IMPRESSION: 1. No abscess detected. Chest X-Ray 12/07/18 00:00 IMPRESSION: NO ACUTE RADIOGRAPHIC FINDING IN THE CHEST. Assessment & Plan - Diagnosis (1) Cellulitis of left arm Is this a current diagnosis for this admission?: Yes (2) Cellulitis of left hand Is this a current diagnosis for this admission?: Yes Plan: At this time does not seem to be a collection that needs evacuation or further surgical management. Recommend continued watching on current antibiotics. I will return this afternoon to evaluate for any progress. Encourage the patient to continue with hand range of motion including making a full fist and achieving full extension as best as possible -Plan to trend CRP, first order this morning (3) Depression Is this a current diagnosis for this admission?: Yes (4) Dog bite Qualifiers: Encounter type: subsequent encounter Qualified Code(s): W54.0XXD - Bitten by dog, subsequent encounter Is this a current diagnosis for this admission?: Yes (5) History of CHF (congestive heart failure) Is this a current diagnosis for this admission?: Yes (6) Hypertension Is this a current diagnosis for this admission?: Yes
--- NOTE | 2018-12-08 08:09 | Progress Note Acknowledgement ---
Progress Note Acknowledgement Progess Note Acknowledgement: I, the undersigned member of the medical staff with appropriate privileges and with supervisory authority over [Joel Cutler], a dependent practice allied health professional, acknowledge that I have reviewed the progress notes entered on this patient, and in my professional judgment believe that the assessment made and/or any care evidenced was appropriate
--- NOTE | 2018-12-08 08:13 | PDOC PROGRESS REPORT ---
Subjective Progress Note for:: 12/08/18 Subjective:: 12/08/2018-no complaints this a.m. Reason For Visit: CELLULITIS,LEFT ARM Physical Exam Vital Signs: Temp Pulse Resp BP Pulse Ox 98.5 F 61 18 152/80 H 98 12/07/18 23:30 12/08/18 07:00 12/07/18 23:30 12/07/18 23:30 12/07/18 23:30 Intake & Output 12/07/18 12/08/18 12/09/18 06:59 06:59 06:59 Intake Total 2049 124 Balance 2049 124 Weight 99.2 kg 103.1 kg General appearance: PRESENT: no acute distress, well-developed, well-nourished Neck exam: ABSENT: carotid bruit, JVD, lymphadenopathy, thyromegaly Respiratory exam: PRESENT: clear to auscultation josy. ABSENT: rales, rhonchi, wheezes Cardiovascular exam: PRESENT: RRR. ABSENT: diastolic murmur, rubs, systolic murmur Pulses: PRESENT: normal dorsalis pedis pul Vascular exam: PRESENT: normal capillary refill GI/Abdominal exam: PRESENT: normal bowel sounds, soft. ABSENT: distended, guarding, mass, organolmegaly, rebound, tenderness Extremities exam: PRESENT: other - Cellulitis ranging from proximal aspect of the thumb up the forearm. Puncture wounds noted at the base of the thumb as well. Neurological exam: PRESENT: alert, awake, oriented to person, oriented to place, oriented to time, oriented to situation, CN II-XII grossly intact. ABSENT: motor sensory deficit Psychiatric exam: PRESENT: appropriate affect, normal mood. ABSENT: homicidal ideation, suicidal ideation Skin exam: PRESENT: dry, intact, warm. ABSENT: cyanosis, rash Results Laboratory Results: 12/07/18 11:25 12/07/18 11:25 12/07/18 12/07/18 12/07/18 11:25 11:25 11:25 WBC 6.4 RBC 4.31 Hgb 12.8 Hct 38.5 MCV 89 MCH 29.7 MCHC 33.2 RDW 14.2 H Plt Count 254 Seg Neutrophils % 81.0 H Sodium 137.7 Potassium 3.7 Chloride 104 Carbon Dioxide 25 Anion Gap 9 BUN 18 Creatinine 0.77 Est GFR ( Amer) > 60 Glucose 126 H Lactic Acid 0.9 Calcium 9.2 Impressions: Upper Extremity CT 12/05/18 09:49 IMPRESSION: 1. No abscess detected. Chest X-Ray 12/07/18 00:00 IMPRESSION: NO ACUTE RADIOGRAPHIC FINDING IN THE CHEST. Assessment and Plan - Diagnosis (1) Cellulitis of left hand Is this a current diagnosis for this admission?: Yes Plan: Slightly improving. Related to dog bite. She has anaphylaxis to penicillins. Continue IV clindamycin and levofloxacin. Wound culture also ordered. 12/08/2018-first time seen in injury. There is multiple drawings of the cellulitic area with no extension past the outline. Patient continues on clindamycin and Levaquin at this time. Awaiting wound cultures (2) Cellulitis of left arm Is this a current diagnosis for this admission?: Yes Plan: As per #1. December 08, 2018-as per #1 (3) Depression Is this a current diagnosis for this admission?: Yes Plan: Resumed antidepressants. 12/08/2018-continue home antidepressants (4) Dog bite Qualifiers: Encounter type: subsequent encounter Qualified Code(s): W54.0XXD - Bitten by dog, subsequent encounter Is this a current diagnosis for this admission?: Yes Plan: As per #1. 12/08/2018-as per #1 (5) History of CHF (congestive heart failure) Is this a current diagnosis for this admission?: Yes Plan: Not in exacerbation. Resumed home meds. 12/08/2018-stable. Continue home medications (6) Hypertension Is this a current diagnosis for this admission?: Yes Plan: Controlled. Continue enalapril and verapamil. 12/08/2018-stable. Continue enalapril and verapamil - Time Time Spent with patient: 15-24 minutes - Inpatient Certification Based on my medical assessment, after consideration of the patient's comorbidities, presenting symptoms, or acuity I expect that the services needed warrant INPATIENT care.: Yes I certify that my determination is in accordance with my understanding of Medicare's requirements for reasonable and necessary INPATIENT services [42 CFR 412.3e].: Yes Medical Necessity: Other - IV antibiotics
[2018-12-08] MEDS: HEPARIN SOD (PORCINE) 5,000 UNIT/ML 1 ML VIAL SUBCUT SCH ×2 (09:15→21:33)
[2018-12-08] MEDS: IPRATROPIUM/ALBUTEROL 0.5-2.5 MG/3 ML AMPUL NEB PRN (09:33)
[2018-12-08] MEDS: LEVOFLOXACIN 750 MG/D5W RTU 750 MG/150 ML RTUPB IV SCH (13:23)
[2018-12-08] MEDS: ATORVASTATIN CALCIUM 20 MG TABLET PO SCH (21:32)
[2018-12-08] MEDS: PANTOPRAZOLE SODIUM 40 MG TABLET.DR PO SCH (21:32)
[2018-12-08] MEDS: FUROSEMIDE 20 MG TABLET PO SCH (21:32)
[2018-12-08] MEDS: ENALAPRIL MALEATE 10 MG TABLET PO SCH (21:33)
[2018-12-08] MEDS: VERAPAMIL HCL 240 MG TABLET.SA PO SCH (21:33)
[2018-12-08] MEDS: VENLAFAXINE HCL 75 MG CAP.SR.24H PO SCH (21:34)
[2018-12-09] MEDS: IPRATROPIUM/ALBUTEROL 0.5-2.5 MG/3 ML AMPUL NEB PRN ×2 (00:50→15:35)
[2018-12-09] MEDS: CLINDAMYCIN 600 MG/D5W RTU 600 MG/50 ML RTUPB IV SCH ×3 (01:28→18:01)
[2018-12-09] MEDS: MORPHINE SULFATE 10 MG/ML INJ IV PRN ×4 (01:31→22:49)
[2018-12-09 08:00] LABS: HEMATOCRIT 38.9 % (36.0-47.0); HEMOGLOBIN 12.9 g/dL (12.0-15.5); MEAN CORPUSCULAR HEMOGLOBIN 29.4 pg (27.0-33.4); MEAN CORPUSCULAR VOLUME 89 fl (80-97); PLATELET COUNT 282 10^3/uL (150-450); RED BLOOD COUNT 4.37 10^6/uL (3.72-5.28); RED CELL DISTRIBUTION WIDTH 14.1 % (11.5-14.0); WHITE BLOOD COUNT 6.3 10^3/uL (4.0-10.5)
[2018-12-09 08:26] LABS: ANION GAP 9 (5-19); BLOOD UREA NITROGEN 16 mg/dL (7-20); CALCIUM 9.8 mg/dL (8.4-10.2); CARBON DIOXIDE 27 mmol/L (22-30); CHLORIDE 103 mmol/L (98-107); GLUCOSE 101 mg/dL (75-110); POTASSIUM 3.9 mmol/L (3.6-5.0)
--- NOTE | 2018-12-09 09:11 | PDOC PROGRESS REPORT ---
Subjective Progress Note for:: 12/09/18 Subjective:: 12/08/2018-no complaints this a.m. 12/09/2018-blood pressure continues to rise Reason For Visit: CELLULITIS,LEFT ARM Physical Exam Vital Signs: Temp Pulse Resp BP Pulse Ox 98.2 F 69 17 112/53 L 95 12/09/18 07:44 12/09/18 07:44 12/09/18 07:44 12/09/18 07:44 12/09/18 00:53 Intake & Output 12/08/18 12/09/18 12/10/18 06:59 06:59 06:59 Intake Total 1240 1838 Balance 1240 1838 Weight 103.1 kg 103.1 kg General appearance: PRESENT: no acute distress, well-developed, well-nourished Head exam: PRESENT: atraumatic, normocephalic Eye exam: PRESENT: conjunctiva pink, EOMI, PERRLA. ABSENT: scleral icterus Ear exam: PRESENT: normal external ear exam Mouth exam: PRESENT: moist, tongue midline Neck exam: ABSENT: carotid bruit, JVD, lymphadenopathy, thyromegaly Respiratory exam: PRESENT: clear to auscultation josy. ABSENT: rales, rhonchi, wheezes Cardiovascular exam: PRESENT: RRR. ABSENT: diastolic murmur, rubs, systolic murmur Pulses: PRESENT: normal dorsalis pedis pul Vascular exam: PRESENT: normal capillary refill GI/Abdominal exam: PRESENT: normal bowel sounds, soft. ABSENT: distended, guarding, mass, organolmegaly, rebound, tenderness Rectal exam: PRESENT: deferred Extremities exam: PRESENT: full ROM. ABSENT: calf tenderness, clubbing, pedal edema Neurological exam: PRESENT: alert, awake, oriented to person, oriented to place, oriented to time, oriented to situation, CN II-XII grossly intact. ABSENT: motor sensory deficit Psychiatric exam: PRESENT: appropriate affect, normal mood. ABSENT: homicidal ideation, suicidal ideation Skin exam: PRESENT: dry, intact, warm, other - Area of erythema running from the left thumb up to the elbow. Still significant nature although it has not grown outside the marked boundaries from nursing.. ABSENT: cyanosis, rash Results Laboratory Results: 12/09/18 07:30 12/09/18 07:30 12/08/18 12/09/18 12/09/18 12:43 07:30 07:30 WBC 6.3 RBC 4.37 Hgb 12.9 Hct 38.9 MCV 89 MCH 29.4 MCHC 33.0 RDW 14.1 H Plt Count 282 Sodium 138.8 Potassium 3.9 Chloride 103 Carbon Dioxide 27 Anion Gap 9 BUN 16 Creatinine 0.75 Est GFR ( Amer) > 60 Glucose 101 Calcium 9.8 C-Reactive Protein 43.1 H Impressions: Upper Extremity CT 12/05/18 09:49 IMPRESSION: 1. No abscess detected. Chest X-Ray 12/07/18 00:00 IMPRESSION: NO ACUTE RADIOGRAPHIC FINDING IN THE CHEST. Assessment and Plan - Diagnosis (1) Cellulitis of left hand Is this a current diagnosis for this admission?: Yes Plan: Slightly improving. Related to dog bite. She has anaphylaxis to penicillins. Continue IV clindamycin and levofloxacin. Wound culture also ordered. 12/08/2018-first time seen in injury. There is multiple drawings of the cellulitic area with no extension past the outline. Patient continues on clindamycin and Levaquin at this time. Awaiting wound cultures.. 12/09/2018-improved slightly from yesterday. Patient continues on IV Levaquin and clindamycin. Awaiting cultures. Surgery has seen patient and does not think this is surgical at this time. (2) Cellulitis of left arm Is this a current diagnosis for this admission?: Yes Plan: As per #1. December 08, 2018-as per #1 December 09, 2018-as per #1 (3) Depression Is this a current diagnosis for this admission?: Yes Plan: Resumed antidepressants. 12/08/2018-continue home antidepressants 12/09/2018-stable continue home antidepressants (4) Dog bite Qualifiers: Encounter type: subsequent encounter Qualified Code(s): W54.0XXD - Bitten by dog, subsequent encounter Is this a current diagnosis for this admission?: Yes Plan: As per #1. 12/08/2018-as per #1 12/09/2018-as per #1 (5) History of CHF (congestive heart failure) Is this a current diagnosis for this admission?: Yes Plan: Not in exacerbation. Resumed home meds. 12/08/2018-stable. Continue home medications 12/09/2018-not in exacerbation at this time stable continue home medications. (6) Hypertension Is this a current diagnosis for this admission?: Yes Plan: Controlled. Continue enalapril and verapamil. 12/08/2018-stable. Continue enalapril and verapamil 12/09/2018- systolic pressure increased in 150s. Added hydralazine 25 mg p.o. twice daily will adjust as necessary - Time Time Spent with patient: 15-24 minutes - Inpatient Certification Based on my medical assessment, after consideration of the patient's comorbidities, presenting symptoms, or acuity I expect that the services needed warrant INPATIENT care.: Yes I certify that my determination is in accordance with my understanding of Medicare's requirements for reasonable and necessary INPATIENT services [42 CFR 412.3e].: Yes Medical Necessity: Other - IV antibiotics
[2018-12-09] MEDS: HYDRALAZINE HCL 25 MG TABLET PO SCH ×2 (10:00→21:51)
[2018-12-09] MEDS: HEPARIN SOD (PORCINE) 5,000 UNIT/ML 1 ML VIAL SUBCUT SCH ×2 (10:18→21:54)
[2018-12-09] MEDS: LEVOFLOXACIN 750 MG/D5W RTU 750 MG/150 ML RTUPB IV SCH (13:04)
--- NOTE | 2018-12-09 17:37 | PDOC PROGRESS REPORT ---
Subjective Subjective:: Patient is in good spirits today. She feels much better and believes that the symptoms have much improved since my prior exam. No new signs or symptoms, no change to the review of systems. Reason For Visit: CELLULITIS,LEFT ARM Physical Exam Vital Signs: Temp Pulse Resp BP Pulse Ox 98.2 F 76 17 146/74 H 96 12/09/18 15:56 12/09/18 15:56 12/09/18 15:56 12/09/18 15:56 12/09/18 15:35 Intake & Output 12/08/18 12/09/18 12/10/18 06:59 06:59 06:59 Intake Total 1240 1838 410 Balance 1240 1838 410 Weight 103.1 kg 103.1 kg Physical Exam: Physical Exam: General appearance: PRESENT: no acute distress, cooperative, well-nourished Head exam: PRESENT: atraumatic, normocephalic Eye exam: PRESENT: EOMI Ear exam: PRESENT: normal external ear exam Mouth exam: PRESENT: neck supple Neck exam: ABSENT: tracheal deviation Respiratory exam: PRESENT: symmetrical, unlabored. ABSENT: accessory muscle use, wheezes Pulses: PRESENT: normal radial pulses, normal dorsalis pedis pul Vascular exam: PRESENT: normal capillary refill GI/Abdominal exam: ABSENT: distended, firm Extremities exam: PRESENT: full ROM Musculoskeletal exam: PRESENT: full ROM, normal inspection Neurological exam: PRESENT: alert, awake, oriented to person, oriented to place, oriented to time Psychiatric exam: PRESENT: appropriate affect. ABSENT: agitated Focused psych exam: ABSENT: catatonic Skin exam: PRESENT: intact. ABSENT: dry All as above aside from that noted in the HPI and the following: The puncture wounds on the left dorsum of the hand one proximal to one at and one distal to the second MCP joint. They do not appear to be actively draining there is no palpable fluctuance or appreciable abscess, and appear to be less swollen. The patient is able to range her finger without significant pain outside of extremes. Otherwise she has full sensation and motor function to her left upper extremity. Lymphangitis is also improving and has regressed from the line of the skin marker. Results Laboratory Results: 12/09/18 07:30 12/09/18 07:30 12/09/18 12/09/18 07:30 07:30 WBC 6.3 RBC 4.37 Hgb 12.9 Hct 38.9 MCV 89 MCH 29.4 MCHC 33.0 RDW 14.1 H Plt Count 282 Sodium 138.8 Potassium 3.9 Chloride 103 Carbon Dioxide 27 Anion Gap 9 BUN 16 Creatinine 0.75 Est GFR ( Amer) > 60 Glucose 101 Calcium 9.8 Impressions: Upper Extremity CT 12/05/18 09:49 IMPRESSION: 1. No abscess detected. Chest X-Ray 12/07/18 00:00 IMPRESSION: NO ACUTE RADIOGRAPHIC FINDING IN THE CHEST. Assessment & Plan - Diagnosis (1) Cellulitis of left arm Is this a current diagnosis for this admission?: Yes (2) Cellulitis of left hand Is this a current diagnosis for this admission?: Yes (3) Depression Is this a current diagnosis for this admission?: Yes (4) Dog bite Qualifiers: Encounter type: subsequent encounter Qualified Code(s): W54.0XXD - Bitten by dog, subsequent encounter Is this a current diagnosis for this admission?: Yes Plan: -The patient can continues to improve on her current antibiotic regiment, would suggest continuation potential modification pending culture results. -Recommend continued range of motion of the hand. -Would continue dilute Betadine soaks for 1 more day. -CRP was 43 yesterday, repeat CRP for this afternoon has been ordered. Will follow -If continued resolution tomorrow patient may be able to return home on p.o. antibiotics (5) History of CHF (congestive heart failure) Is this a current diagnosis for this admission?: Yes (6) Hypertension Is this a current diagnosis for this admission?: Yes
[2018-12-09] MEDS: FUROSEMIDE 20 MG TABLET PO SCH (21:51)
[2018-12-09] MEDS: ATORVASTATIN CALCIUM 20 MG TABLET PO SCH (21:51)
[2018-12-09] MEDS: VENLAFAXINE HCL 75 MG CAP.SR.24H PO SCH (21:52)
[2018-12-09] MEDS: ENALAPRIL MALEATE 10 MG TABLET PO SCH (21:52)
[2018-12-09] MEDS: PANTOPRAZOLE SODIUM 40 MG TABLET.DR PO SCH (21:53)
[2018-12-09] MEDS: VERAPAMIL HCL 240 MG TABLET.SA PO SCH (21:53)
[2018-12-10] MEDS: CLINDAMYCIN 600 MG/D5W RTU 600 MG/50 ML RTUPB IV SCH ×3 (03:32→17:04)
--- NOTE | 2018-12-10 07:29 | PDOC PROGRESS REPORT ---
Subjective Subjective:: Patient doing well today, no new complaints or symptoms. Feels she continues to improve. Reason For Visit: CELLULITIS,LEFT ARM Physical Exam Vital Signs: Temp Pulse Resp BP Pulse Ox 98.4 F 87 18 150/79 H 99 12/09/18 23:46 12/10/18 02:00 12/09/18 23:46 12/09/18 23:46 12/09/18 23:46 Intake & Output 12/09/18 12/10/18 12/11/18 06:59 06:59 06:59 Intake Total 1838 1690 Balance 1838 1690 Weight 103.1 kg 103.2 kg Physical Exam: No change attendant prior physical exam. Bandage in place, no drainage, no signs of progression. Results Laboratory Results: 12/09/18 07:30 12/09/18 07:30 12/09/18 12/09/18 12/09/18 07:30 07:30 07:30 WBC 6.3 RBC 4.37 Hgb 12.9 Hct 38.9 MCV 89 MCH 29.4 MCHC 33.0 RDW 14.1 H Plt Count 282 Sodium 138.8 Potassium 3.9 Chloride 103 Carbon Dioxide 27 Anion Gap 9 BUN 16 Creatinine 0.75 Est GFR ( Amer) > 60 Glucose 101 Calcium 9.8 C-Reactive Protein 30.4 H Impressions: Upper Extremity CT 12/05/18 09:49 IMPRESSION: 1. No abscess detected. Chest X-Ray 12/07/18 00:00 IMPRESSION: NO ACUTE RADIOGRAPHIC FINDING IN THE CHEST. Assessment & Plan - Diagnosis (1) Cellulitis of left arm Is this a current diagnosis for this admission?: Yes (2) Cellulitis of left hand Is this a current diagnosis for this admission?: Yes (3) Depression Is this a current diagnosis for this admission?: Yes (4) Dog bite Qualifiers: Encounter type: subsequent encounter Qualified Code(s): W54.0XXD - Bitten by dog, subsequent encounter Is this a current diagnosis for this admission?: Yes Plan: - Pending final cultures and potential PO abx, patient may be stable for discharge. -Recommend continued active range of motion of the hand. -Would continue dilute Betadine soaks today -CRP trending down from 43 to 30. -I am happy to follow the patient in my clinic with any further needs or changes in symptoms S/P discharge. (5) History of CHF (congestive heart failure) Is this a current diagnosis for this admission?: Yes (6) Hypertension Is this a current diagnosis for this admission?: Yes
--- NOTE | 2018-12-10 08:30 | PDOC PROGRESS REPORT ---
Subjective Progress Note for:: 12/10/18 Subjective:: 12/08/2018-no complaints this a.m. 12/09/2018-blood pressure continues to rise 12/10/2018- Reason For Visit: CELLULITIS,LEFT ARM Physical Exam Vital Signs: Temp Pulse Resp BP Pulse Ox 98.4 F 87 18 150/79 H 99 12/09/18 23:46 12/10/18 02:00 12/09/18 23:46 12/09/18 23:46 12/09/18 23:46 Intake & Output 12/09/18 12/10/18 12/11/18 06:59 06:59 06:59 Intake Total 1838 1690 Balance 1838 1690 Weight 103.1 kg 103.2 kg General appearance: PRESENT: no acute distress, well-developed, well-nourished Head exam: PRESENT: atraumatic, normocephalic Eye exam: PRESENT: conjunctiva pink, EOMI, PERRLA. ABSENT: scleral icterus Ear exam: PRESENT: normal external ear exam Mouth exam: PRESENT: moist, tongue midline Neck exam: ABSENT: carotid bruit, JVD, lymphadenopathy, thyromegaly Respiratory exam: PRESENT: clear to auscultation josy. ABSENT: rales, rhonchi, wheezes Cardiovascular exam: PRESENT: RRR. ABSENT: diastolic murmur, rubs, systolic mur mur Pulses: PRESENT: normal dorsalis pedis pul Vascular exam: PRESENT: normal capillary refill GI/Abdominal exam: PRESENT: normal bowel sounds, soft. ABSENT: distended, guarding, mass, organolmegaly, rebound, tenderness Rectal exam: PRESENT: deferred Extremities exam: PRESENT: full ROM, other - Erythema and tenderness to left upper extremity. This ranges from her thumb base up through the elbow. Very warm to touch. ABSENT: calf tenderness, clubbing, pedal edema Neurological exam: PRESENT: alert, awake, oriented to person, oriented to place, oriented to time, oriented to situation, CN II-XII grossly intact. ABSENT: motor sensory deficit Psychiatric exam: PRESENT: appropriate affect, normal mood. ABSENT: homicidal ideation, suicidal ideation Skin exam: PRESENT: dry, intact, warm. ABSENT: cyanosis, rash Results Laboratory Results: 12/09/18 07:30 12/09/18 07:30 12/09/18 12/09/18 07:30 07:30 Sodium 138.8 Potassium 3.9 Chloride 103 Carbon Dioxide 27 Anion Gap 9 BUN 16 Creatinine 0.75 Est GFR ( Amer) > 60 Glucose 101 Calcium 9.8 C-Reactive Protein 30.4 H Impressions: Upper Extremity CT 12/05/18 09:49 IMPRESSION: 1. No abscess detected. Chest X-Ray 12/07/18 00:00 IMPRESSION: NO ACUTE RADIOGRAPHIC FINDING IN THE CHEST. Assessment and Plan - Diagnosis (1) Cellulitis of left hand Is this a current diagnosis for this admission?: Yes Plan: Slightly improving. Related to dog bite. She has anaphylaxis to penicillins. Continue IV clindamycin and levofloxacin. Wound culture also ordered. 12/08/2018-first time seen in injury. There is multiple drawings of the cellulitic area with no extension past the outline. Patient continues on clindamycin and Levaquin at this time. Awaiting wound cultures.. 12/09/2018-improved slightly from yesterday. Patient continues on IV Levaquin and clindamycin. Awaiting cultures. Surgery has seen patient and does not think this is surgical at this time. 12/10/2018-continues to improve but patient is having lots of tenderness to the area as well as erythema remains. Continue IV antibiotics at this time (2) Cellulitis of left arm Is this a current diagnosis for this admission?: Yes Plan: As per #1. December 08, 2018-as per #1 December 09, 2018-as per #1 December 10, 2018-as per #1 (3) Depression Is this a current diagnosis for this admission?: Yes Plan: Resumed antidepressants. 12/08/2018-continue home antidepressants 12/09/2018-stable continue home antidepressants 12/10/2018-stable continue home antidepressants (4) Dog bite Qualifiers: Encounter type: subsequent encounter Qualified Code(s): W54.0XXD - Bitten by dog, subsequent encounter Is this a current diagnosis for this admission?: Yes Plan: As per #1. 12/08/2018-as per #1 12/09/2018-as per #1 12/10/2018-as per #1 (5) History of CHF (congestive heart failure) Is this a current diagnosis for this admission?: Yes Plan: Not in exacerbation. Resumed home meds. 12/08/2018-stable. Continue home medications 12/09/2018-not in exacerbation at this time stable continue home medications. 12/10/2018-not in exacerbation continue home medications (6) Hypertension Is this a current diagnosis for this admission?: Yes Plan: Controlled. Continue enalapril and verapamil. 12/08/2018-stable. Continue enalapril and verapamil 12/09/2018- systolic pressure increased in 150s. Added hydralazine 25 mg p.o. twice daily will adjust as necessary 12/10/2018-systolic pressure persistently 150s. Increase hydralazine to 50 mg p.o. twice daily. Continue to follow - Time Time Spent with patient: 15-24 minutes - Inpatient Certification Based on my medical assessment, after consideration of the patient's comorbidities, presenting symptoms, or acuity I expect that the services needed warrant INPATIENT care.: Yes I certify that my determination is in accordance with my understanding of Medicare's requirements for reasonable and necessary INPATIENT services [42 CFR 412.3e].: Yes Medical Necessity: Other - IV antibiotics
[2018-12-10] MEDS: HEPARIN SOD (PORCINE) 5,000 UNIT/ML 1 ML VIAL SUBCUT SCH ×2 (09:36→22:31)
[2018-12-10] MEDS: HYDRALAZINE HCL 50 MG TABLET PO SCH ×2 (09:36→22:26)
[2018-12-10] MEDS: LEVOFLOXACIN 750 MG/D5W RTU 750 MG/150 ML RTUPB IV SCH (12:47)
[2018-12-10] MEDS: MORPHINE SULFATE 10 MG/ML INJ IV PRN ×2 (17:15→23:33)
[2018-12-10] MEDS: IPRATROPIUM/ALBUTEROL 0.5-2.5 MG/3 ML AMPUL NEB PRN (21:29)
[2018-12-10] MEDS: ENALAPRIL MALEATE 10 MG TABLET PO SCH (22:25)
[2018-12-10] MEDS: ATORVASTATIN CALCIUM 20 MG TABLET PO SCH (22:26)
[2018-12-10] MEDS: VENLAFAXINE HCL 75 MG CAP.SR.24H PO SCH (22:26)
[2018-12-10] MEDS: VERAPAMIL HCL 240 MG TABLET.SA PO SCH (22:27)
[2018-12-10] MEDS: PANTOPRAZOLE SODIUM 40 MG TABLET.DR PO SCH (22:27)
[2018-12-10] MEDS: FUROSEMIDE 20 MG TABLET PO SCH (22:28)
[2018-12-11] MEDS: CLINDAMYCIN 600 MG/D5W RTU 600 MG/50 ML RTUPB IV SCH ×2 (02:48→09:43)
--- NOTE | 2018-12-11 08:36 | PDOC DISCHARGE SUMMARY ---
General - Admit/Disc Date/PCP Admission Date/Primary Care Provider: 12/07/18 11:57 DICK VALERIO PA-C Discharge Date: 12/11/18 - Discharge Diagnosis (1) Cellulitis of left hand Is this a current diagnosis for this admission?: Yes (2) Cellulitis of left arm Is this a current diagnosis for this admission?: Yes (3) Depression Is this a current diagnosis for this admission?: Yes (4) Dog bite Is this a current diagnosis for this admission?: Yes (5) History of CHF (congestive heart failure) Is this a current diagnosis for this admission?: Yes (6) Hypertension Is this a current diagnosis for this admission?: Yes - Additional Information Resuscitation Status: Do Not Resuscitate Discharge Diet: As Tolerated Discharge Activity: Activity As Tolerated Prescriptions: Hydralazine HCl [Apresoline 50 mg Tablet] 50 mg PO Q12 #60 tablet Mupirocin [Bactroban 2% Ointment 22 gm] 1 applic TP TID #1 tube Clindamycin HCl [Cleocin 300 mg Capsule] 600 mg PO Q8H #30 cap Levofloxacin [Levaquin 750 mg Tablet] 750 mg PO DAILY #5 tablet Oxycodone HCl/Acetaminophen [Percocet 5-325 mg Tablet] 1 tab PO Q4HP PRN #30 tab PRN Reason: Home Medications: Atorvastatin Calcium [Lipitor 20 mg Tablet] 20 mg PO QHS 12/05/18 Enalapril Maleate [Vasotec 20 mg Tablet] 20 mg PO QHS 12/05/18 Esomeprazole Mag Trihydrate [Nexium] 40 mg PO QHS 12/05/18 Furosemide [Lasix 20 mg Tablet] 20 mg PO QHS 12/05/18 Venlafaxine HCl [Venlafaxine HCl ER] 150 mg PO QHS 12/05/18 Verapamil HCl [Verapamil ER] 240 mg PO QHS 12/05/18 Clindamycin HCl [Cleocin 300 mg Capsule] 600 mg PO Q8H #30 cap 12/11/18 Hydralazine HCl [Apresoline 50 mg Tablet] 50 mg PO Q12 #60 tablet 12/11/18 Levofloxacin [Levaquin 750 mg Tablet] 750 mg PO DAILY #5 tablet 12/11/18 Mupirocin [Bactroban 2% Ointment 22 gm] 1 applic TP TID #1 tube 12/11/18 Oxycodone HCl/Acetaminophen [Percocet 5-325 mg Tablet] 1 tab PO Q4HP PRN #30 tab 12/11/18 History of Present Illness Patient complains of: None this a.m. History of Present Illness: FUENTES MAGALLANES is a 63 year old female who was admitted after being bitten on the left hand just below her thumb by her dog. Patient presented with cellulitis up through her left elbow. Hospital Course Hospital Course: Patient was admitted after being bitten on the hand by her dog last . She went to the ER previously was prescribed p.o. clindamycin without relief. She stated at that time the swelling and pain worsened and she showed tenderness and erythema was extended to the left arm with pain radiating to the left armpit. She denied any fevers or chills at home. She does have a penicillin allergy and says that she has shortness of breath and her throat almost closed off from penicillin. She does have past medical history of CHF, hypertension, hyperlipidemia and depression. Patient has been on IV clindamycin and Levaquin since 12/05/2018 and blood cultures have been negative thus far. I will send patient home continue on Levaquin 750 mg daily x5 days, clindamycin 600 mg q. 8 x 5 days, and Percocet 5/325 mg 1 p.o. every 4 hours as needed for pain. Patient will see her primary care practitioner first next week. I have also prescribed hydralazine 50 mg p.o. every 12 for hypertension and she will continue other home medications as previous. Iwill obtain a forearm x-ray this morning to rule out any osteomyelitis if negative patient will return home. Physical Exam Vital Signs: Temp Pulse Resp BP Pulse Ox 98.2 F 92 16 126/61 H 97 12/10/18 23:27 12/11/18 08:07 12/11/18 08:07 12/10/18 23:27 12/11/18 08:07 Intake & Output 12/10/18 12/11/18 12/12/18 06:59 06:59 06:59 Intake Total 1690 1280 Balance 1690 1280 Weight 103.2 kg 103.8 kg General appearance: PRESENT: no acute distress, well-developed, well-nourished Neck exam: ABSENT: carotid bruit, JVD, lymphadenopathy, thyromegaly Respiratory exam: PRESENT: clear to auscultation josy. ABSENT: rales, rhonchi, wheezes Cardiovascular exam: PRESENT: RRR. ABSENT: diastolic murmur, rubs, systolic murmur Pulses: PRESENT: normal dorsalis pedis pul GI/Abdominal exam: PRESENT: normal bowel sounds, soft. ABSENT: distended, guarding, mass, organolmegaly, rebound, tenderness Extremities exam: PRESENT: full ROM. ABSENT: calf tenderness, clubbing, pedal edema Neurological exam: PRESENT: alert, awake, oriented to person, oriented to place, oriented to time, oriented to situation, CN II-XII grossly intact. ABSENT: motor sensory deficit Psychiatric exam: PRESENT: appropriate affect, normal mood. ABSENT: homicidal ideation, suicidal ideation Skin exam: PRESENT: other - Open wound to the right first digit. No unusual smells or drainage noted. Patient does have cellulitis from her hand up to her forearm. This is improved from yesterday. Results Laboratory Results: 12/09/18 07:30 12/09/18 07:30 12/05/18 11:51 Blood Blood Culture - Final NO GROWTH IN 5 DAYS 12/05/18 10:10 Blood Blood Culture - Final NO GROWTH IN 5 DAYS 12/07/18 09:42 Finger - Left Index Finger Gram Stain - Final 12/07/18 09:42 Finger - Left Index Finger Wound Culture - Final Group F Beta Streptococcus Skin Monet Impressions: Upper Extremity CT 12/05/18 09:49 IMPRESSION: 1. No abscess detected. Chest X-Ray 12/07/18 00:00 IMPRESSION: NO ACUTE RADIOGRAPHIC FINDING IN THE CHEST. Qualifiers - * PATIENT BEING DISCHARGED WITH ANY OF THE FOLLOWING DIAGNOSIS: No Acute Heart Failure - Is this a Heart Failure Patient?: No Plan Time Spent: Greater than 30 Minutes
[2018-12-11] MEDS: HEPARIN SOD (PORCINE) 5,000 UNIT/ML 1 ML VIAL SUBCUT SCH (09:42)
[2018-12-11] MEDS: HYDRALAZINE HCL 50 MG TABLET PO SCH (09:42)
--- NOTE | 2018-12-11 09:44 | RADIOLOGY REPORT (SQ) ---
EXAM DESCRIPTION: FOREARM LEFT COMPLETED DATE/TIME: 12/11/2018 9:36 am REASON FOR STUDY: osteomylitis COMPARISON: None. NUMBER OF VIEWS: Two views. TECHNIQUE: Two radiographic images acquired of the left forearm, including elbow and wrist in at [address] one projection. LIMITATIONS: None. FINDINGS: MINERALIZATION: Normal. BONES: No acute fracture. No worrisome bone lesions. SOFT TISSUES: No obvious swelling or foreign body. OTHER: No other significant finding. IMPRESSION: NEGATIVE STUDY OF THE LEFT FOREARM. NO RADIOGRAPHIC EVIDENCE OF ACUTE INJURY. TECHNICAL DOCUMENTATION: JOB ID: [id number] [employer]- All Rights Reserved Reading location - IP/workstation name: [email or web address]
[2018-12-11 11:13] VITALS: BP 142/70
== END 2018-12-11 12:15 | disposition home or self-care (01) | DRG 603 ==
LOC: ER 09:23 → INTOOBSV 13:20 → EH 13:20 → 4N 15:21 → OBSVTOIN 12-07 11:57
PROVIDERS: ADMIT Internal Medicine; ATTEND Internal Medicine
DX: L03.114 Cellulitis of left upper limb (principal); I11.0 Hypertensive heart disease with heart failure; I50.9 Heart failure, unspecified; E78.5 Hyperlipidemia, unspecified; F32.9 Major depressive disorder, single episode, unspecified; Z88.0 Allergy status to penicillin; M19.90 Unspecified osteoarthritis, unspecified site; Z90.710 Acquired absence of both cervix and uterus; Z88.5 Allergy status to narcotic agent; W54.0XXD Bitten by dog, subsequent encounter; Z79.899 Other long term (current) drug therapy; Z66 Do not resuscitate
CPT/HCPCS: 36415; 71045; 80048; 80053; 83605; 85025; 85027; 86140; 87040; 87070; 87077; 87205; 93005; 93010; 93971; 94640; 96365; 96366; 96375; 99284; G0378; J1644; J1885; J1956; J2060; J2270; J2405; J3370; J3490; J7040; J7620